=== PATIENT | male | born 1975 | race Caucasian/White ===

== ENCOUNTER 2020-01-29 14:53 | Emergency (ER) | payer OTHER, SELFPAY ==
[2020-01-29] VITALS (25 sets, daily range): BP systolic 117–185; BP diastolic 76–102; PULSE 65–85; RESP 14–30; O2SAT 95–100
--- NOTE | ~2020-01-29 | XR_ITS ---
EXAMINATION: XR chest 2V EXAM DATE: 01/29/2020 15:17 INDICATION: Chest pain, shortness of breath. There is respirator. Outside exposure. TECHNIQUE: Frontal and lateral projections of the chest obtained and reviewed. Comparison is made to prior examination from 03/21/2018. FINDINGS: The lungs are clear. There are no pleural effusions. The cardiomediastinal silhouette is within normal limits. There is no pneumothorax suspected. The bones and soft tissues are unremarkab le. There is no significant interval change. IMPRESSION: Unremarkable chest x-ray exam. Reviewed, dictated and finalized at location A.
--- NOTE | 2020-01-29 14:56 | ECG_ITS ---
Measurements Intervals [place] Rate: 73 P: 50 [place]: 166 QRS: 5 QRSD: 118 T: 24 QT: 378 QTc: 419 Interpretive Statements SINUS RHYTHM INCOMPLETE RIGHT BUNDLE BRANCH BLOCK BORDERLINE ECG Electronically Signed On 01-29-2020 15:34:56 CDT by Chase Hyman D.O.
--- NOTE | 2020-01-29 15:09 | ED.GENADULT ---
HPI - General Adult General Chief complaint: Chest Pain Stated complaint: CP, BAD INFECTION IN MY LUNGS. Time Seen by Provider: 01/29/20 14:56 Source: RN notes reviewed History of Present Illness HPI narrative: Patient presents emergency department from home for chest pain. Patient states chest pain is been present for the past 1 week. Pain is located across the bilateral anterior chest. Pain is worse with inspiration and resolves when he holds his breath. He denies any fevers or chills coughing shortness of breath abdominal pain nausea vomiting or any other symptoms Related Data Home Medications Medication Instructions Recorded Confirmed metoprolol succinate 50 mg 50 mg PO DAILY 10/18/19 tablet,extended release 24 hr Allergies Allergy/AdvReac Type Severity Reaction Status Date / Time No Known Allergies Allergy Mild Verified 01/29/20 15:24 Review of Systems Review of Systems: Narrative: Gen.: Denies fevers or chills ENT: Denies congestion Respiratory: Denies shortness of breath or cough CV: See HPI GI: Denies abdominal pain nausea, emesis or diarrhea Musculoskeletal: Denies back pain or muscle pain Neuro: Denies numbness, tingling, weakness or focal weakness Skin: Denies rash Except as documented, all other systems reviewed and negative [facility] Past Medical History Medical History (Updated 01/29/20 @ 18:47 by Dariusz Magana DO) HLD (hyperlipidemia) Hypertension Social History Social History (Updated 01/29/20 @ 18:45 by Dariusz Magana DO) Smoking status: Never smoker Exam Narrative: Exam Narrative: APPEARANCE: No acute distress, nontoxic, resting in bed EYES: EOMI HEENT: Normocephalic, atraumatic, OMM RESPIRATORY: No respiratory distress Clear to auscultation bilaterally with no rhonchi wheezing or rales. CARDIOVASCULAR: Regular rate and rhythm without murmurs rubs or gallops. ABDOMINAL: Soft, nontender, nondistended, no rebound or guarding MUSCULOSKELETAl: Moves all extremities. No clubbing, cyanosis or edema. NEURO: Awake and alert. Following commands, speech normal, no focal deficits SKIN:: Warm, dry. No rashes lesions or abrasions PSYCHIATRIC: Normal affect/mood, Course Course Emergency Course: Patient states chest pain has resolved following GI cocktail Discussed with patient results of workup and diagnosis. Discussed need for follow-up with primary care, proper use of medication, and reasons to return to the emergency department. Patient understands and agrees to current treatment plan Vital Signs Vital signs: Vital Signs Pulse Rate 75 01/29/20 15:19 Respiratory Rate 16 01/29/20 15:19 Blood Pressure 151/83 H 01/29/20 15:19 Pulse Oximetry 98 01/29/20 15:19 Pulse Rate 85 01/29/20 16:09 Respiratory Rate 16 01/29/20 16:09 Blood Pressure 117/88 01/29/20 16:09 Pulse Oximetry 98 01/29/20 15:19 Medical Decision Making MDM Narrative Medical decision making narrative: Patient's EKGs and labs are without significant high risk changes. Cardiac risk factors reviewed. Patient is felt likely low risk for ACS and reasonable for further risk stratification testing as an outpatient. Pain was not sudden or maximal in onset without tearing or ripping quality. No other signs of symptoms suggest aortic dissection. A low-risk Wells criteria is noted, PE is felt to be unlikely. No pneumonia seen on evaluation today. Patient is felt to be a reasonable candidate for continued evaluation as an outpatient. Pain is been present for the past 1 week Vital Signs Vital Signs: Vital Signs Pulse Rate 75 01/29/20 15:19 Respiratory Rate 16 01/29/20 15:19 Blood Pressure 151/83 H 01/29/20 15:19 Pulse Oximetry 98 01/29/20 15:19 Pulse Rate 85 01/29/20 16:09 Respiratory Rate 16 01/29/20 16:09 Blood Pressure 117/88 01/29/20 16:09 Pulse Oximetry 98 01/29/20 15:19 Lab Data Result diagrams: 01/29/20 15:23 01/29/20 15:23 Labs:
[2020-01-29 15:31] LABS: Basophils Absolute Auto 0.1 K/mm3 (0.0-0.1); Basophils Percent Auto 0.6 % (0.2-1.2); Eosinophils Absolute Auto 0.3 K/mm3 (0-0.3); Eosinophils Percent Auto 2.4 % (0-4.4); Hematocrit 43.3 % (42.0-52.0); Hemoglobin 14.5 g/dL (14.0-18.0); Immature Granulocyte Absolute 0.05 K/mm3 (0.00-0.031); Immature Granulocyte Percent A 0.4 % (0-0.5); Lymphocytes Absolute Auto 3.15 K/mm3 (0.9-3.2); Lymphocytes Percent Auto 27.5 % (18.3-44.2); Mean Corpuscular HGB Conc 33.5 g/dl (32-36); Mean Corpuscular Hemoglobin 29.8 pg (26-34); Mean Corpuscular Volume 89.1 fl (80-100); Mean Platelet Volume 10.4 fl (7.4-10.4); Monocytes Percent Auto 8.7 % (2.6-8.5); Neutrophils Absolute Auto 6.9 K/mm3 (1.3-6.7); Neutrophils Percent Auto 60.4 % (45.5-73.1); Platelet Count Result 234 k/mm3 (150-375); Red Blood Count 4.86 M/mm3 (4.6-6.20); Red Cell Distribution Width 13.8 % (11.5-14.5); White Blood Count 11.5 K/mm3 (4.5-10.0)
[2020-01-29 15:45] LABS: INR 0.9; Partial Thromboplastin Time 22.1 SECONDS (22.3-36.8); Prothrombin Time 11.6 Seconds (11.1-14.7)
[2020-01-29 15:46] LABS: Blood Urea Nitrogen 18 mg/dL (9-20); Carbon Dioxide 25 mmol/L (22-30); Chloride 103 mmol/L (98-107); Estimated CRCL calculation 158 ml/min; Estimated Glomerular Filt Rate > 60; Glucose 113 mg/dL (75-110); Potassium 3.9 mmol/L (3.4-5.0); Sodium 137 mmol/L (137-145)
[2020-01-29] MEDS: KETOROLAC 30 MG/ML VIAL (*BKC) IV PUSH (15:52)
[2020-01-29 15:54] LABS: D Dimer 0.27 ug/mL (<0.48)
[2020-01-29 15:56] LABS: Troponin I < 0.012 ng/mL (0.000-0.034)
[2020-01-29 16:46] LABS: Alanine Aminotransferase 35 U/L (4-50); Albumin Level 4.5 g/dL (3.5-5.1); Alkaline Phosphatase 69 U/L (38-126); Aspartate Amino Transferase 39 U/L (17-59); Bilirubin,Total 0.4 mg/dL (0.2-1.3); Lipase 82 U/L (23-300)
[2020-01-29 18:34] LABS: Troponin I < 0.012 ng/mL (0.000-0.034)
== END 2020-01-29 19:02 | disposition home or self-care (01) ==
PROVIDERS: Emergency Provider Emergency Medicine; PCP Emergency Medicine
DX: R07.89 Other chest pain (principal); E78.5 Hyperlipidemia, unspecified; I10 Essential (primary) hypertension; I45.10 Unspecified right bundle-branch block
CPT/HCPCS: 36415; 71046; 80048; 80076; 83690; 84484; 85025; 85380; 85610; 85730; 93005; 96374; 99284; A9270; J1885

== ENCOUNTER 2020-02-12 10:51 | Outpatient (CLI) | payer OTHER, SELFPAY ==
--- NOTE | ~2020-02-12 | US_ITS ---
EXAMINATION: US abdomen limited EXAM DATE: 02/12/2020 11:40 INDICATION: Gastroesophageal reflux. TECHNIQUE: Multiple grayscale and Doppler images of the abdomen right upper quadrant were obtained (b y a technologist who performed the scan) and subsequently reviewed. There is no prior study for honorio cohen. FINDINGS: The pancreatic head and body are normal in appearance. The pancreatic tail is not visualized. There is echogenic liver parenchyma, hepatic steatosis. There are no focal liver lesions identified. Th ere is no evidence of intrahepatic biliary duct dilation. Portal venous flow was seen in the hepatop edal, normal direction and has normal Doppler waveform. No right-sided hydronephrosis. Common bile duct measures 4 mm, which is normal. The gallbladder wall is normal in thickness, with ex pected amount of distention. No sonographic evidence of pericholecystic fluid. There is no cholelit hiases. Technologist performing exam reports patient did not demonstrate sonographic Molina's sign. Please note that this sign is less reliable in patients who have received pain medication. IMPRESSION: 1. Hepatic steatosis. Reviewed, dictated and finalized at location B. IMPRESSION: 1. Hepatic steatosis.
== END 2020-02-12 10:52 | disposition home or self-care (01) ==
PROVIDERS: PCP Emergency Medicine; Visit Provider Emergency Medicine
DX: K21.9 Gastro-esophageal reflux disease without esophagitis (principal); R10.9 Unspecified abdominal pain; K76.0 Fatty (change of) liver, not elsewhere classified
CPT/HCPCS: 76705

== ENCOUNTER 2021-04-13 08:43 | Emergency (ER) | payer OTHER, SELFPAY ==
--- NOTE | ~2021-04-13 | CT_ITS ---
EXAMINATION: CT brain wo con EXAM DATE: 04/13/2021 09:49 INDICATION: Left sided paresthesia. TECHNIQUE: Spiral CT of the head was performed without contrast. Axial, coronal and sagittal images were reviewed. The dose-length product (DLP) for this examination was 605.33 mGy-cm. The exposure w as tailored according to patient size, and iterative reconstruction (ASIR) was used as additional dos e reduction technique. There is no prior study for comparison. FINDINGS: There is no acute intraparenchymal hemorrhage. No evidence of intraparenchymal brain mass lesion. No evidence of acute infarction. There is no mass effect or midline shift. The ventricles are normal in size. There are no extra-axial collections. There are no acute calvarial fractures. T he orbits are unremarkable. Soft tissue is unremarkable. Moderate bilateral ethmoid opacity. IMPRESSION: 1. Unremarkable head CT examination. Reviewed, dictated and finalized at location A.
--- NOTE | 2021-04-13 08:45 | ECG_ITS ---
Measurements Intervals [place] Rate: 69 P: 20 MT: 174 QRS: 59 QRSD: 115 T: 50 QT: 399 QTc: 429 Interpretive Statements SINUS RHYTHM INCOMPLETE RIGHT BUNDLE BRANCH BLOCK BORDERLINE ECG Electronically Signed On 04-13-2021 8:55:59 CDT by Chase Hyman D.O.
[2021-04-13 08:46] VITALS: BP 168/81; PULSE 73; RESP 17; TEMP 36.8; O2SAT 100
--- NOTE | 2021-04-13 08:58 | ED.GENADULT ---
HPI - General Adult General Chief complaint: Dizziness Stated complaint: dizzy Time Seen by Provider: 04/13/21 08:57 Source: patient Mode of arrival: ambulatory Limitations: no limitations History of Present Illness HPI narrative: Patient is here for evaluation of symptoms that began on Tuesday and included some chest tightness, blurred vision, numbness to the left side of his face. He states that his vision has improved, he still has numbness to the left side of his face and mild chest tightness that does not radiate. He has a history of cardiac cath last year but no intervention. He took his blood pressure several times at home over the weekend stated that it was high, as much is 190/119. Did come to the ER at that time he was waiting to see his physician today. Onset (ago): day(s) Pain Consistency: constant Relieving factors: none Exacerbating factors: none Associated symptoms: denies other symptoms Treatments prior to arrival: none Related Data Allergies Allergy/AdvReac Type Severity Reaction Status Date / Time No Known Allergies Allergy Mild Verified 04/13/21 08:58 Review of Systems Review of Systems: All systems reviewed & are unremarkable except as noted in HPI and below [facility] Past Medical History Medical History (Updated 04/13/21 @ 11:58 by Dennise Fairchild PA-C) HLD (hyperlipidemia) Hypertension Social History Social History Smoking status: Never smoker Tobacco type: smokeless tobacco Smokeless tobacco user: chewing tobacco Alcohol intake: current Alcohol use details: daily 12 marta Substance use: never Occupation/Education: occupation Additional occupation/education comments: works outside Exam Const: General: no acute distress and alert Orientation/consciousness: patient oriented x3 HENMT: Head: normal to inspection Mouth: Yes Normal oral and palatal mucosa present, Yes tongue normal, Yes oropharynx normal and Yes moist mucous membranes Teeth and gingiva: caries (19 is decayed to gum level, no pain.) Eyes: Pupils: Equal, round and reactive pupils present Resp: Effort & Inspection: normal respiratory effort Auscultation: clear to auscultation bilaterally Cardio: Rate: regular rate Rhythm: regular rhythm Skin: General skin exam: normal color Neuro: General: patient oriented x3 and no focal motor deficits Sensory Exam: Sensory deficit (Neuro) (can feel all touch to face, but has feeling of numbness to left face and he) Other: neuro exam normal Course Course Emergency Course: Labs are normal, her EKG is unchanged from previous visit. Patient does still have numbness and tingling to the left side of his face, his CT is negative for stroke or other pathology. Discussed the possibility of this being a prodrome to shingles. Given the signs and symptoms and he is to call his physician if he develops any blisters or rash. He is to follow-up with his physician at the earliest available date. Vital Signs Vital signs: Vital Signs Temperature 36.8 C 04/13/21 08:46 Pulse Rate 73 04/13/21 08:46 Respiratory Rate 17 04/13/21 08:46 Blood Pressure 168/81 H 04/13/21 08:46 Pulse Oximetry 100 04/13/21 08:46 Temperature 36.8 C 04/13/21 08:46 Pulse Rate 92 04/13/21 10:58 Respiratory Rate 20 04/13/21 10:58 Blood Pressure 144/85 H 04/13/21 10:58 Pulse Oximetry 94 04/13/21 10:55 Medical Decision Making Vital Signs Vital Signs: Vital Signs Temperature 36.8 C 04/13/21 08:46 Pulse Rate 73 04/13/21 08:46 Respiratory Rate 17 04/13/21 08:46 Blood Pressure 168/81 H 04/13/21 08:46 Pulse Oximetry 100 04/13/21 08:46 Temperature 36.8 C 04/13/21 08:46 Pulse Rate 92 04/13/21 10:58 Respiratory Rate 20 04/13/21 10:58 Blood Pressure 144/85 H 04/13/21 10:58 Pulse Oximetry 94 04/13/21 10:55 Lab Data Result diagrams: 04/13/21 08:56 04/13/21 08:56
[2021-04-13 09:04] LABS: Basophils Absolute Auto 0.1 K/mm3 (0.0-0.1); Basophils Percent Auto 0.7 % (0.2-1.2); Eosinophils Absolute Auto 0.2 K/mm3 (0-0.3); Hemoglobin 14.4 g/dL (14.0-18.0); Immature Granulocyte Absolute 0.07 K/mm3 (0.00-0.031); Immature Granulocyte Percent A 0.7 % (0-0.5); Lymphocytes Absolute Auto 2.62 K/mm3 (0.9-3.2); Lymphocytes Percent Auto 27.9 % (18.3-44.2); Mean Corpuscular HGB Conc 33.5 g/dl (32-36); Mean Corpuscular Hemoglobin 29.4 pg (26-34); Mean Corpuscular Volume 87.9 fl (80-100); Mean Platelet Volume 9.9 fl (7.4-10.4); Monocytes Absolute Auto 0.7 K/mm3 (0.1-0.6); Monocytes Percent Auto 7.5 % (2.6-8.5); Neutrophils Absolute Auto 5.7 K/mm3 (1.3-6.7); Neutrophils Percent Auto 61.2 % (45.5-73.1); Platelet Count Result 235 k/mm3 (150-375); Red Blood Count 4.89 M/mm3 (4.6-6.20); Red Cell Distribution Width 13.6 % (11.5-14.5); White Blood Count 9.4 K/mm3 (4.5-10.0)
[2021-04-13 09:16] LABS: Anion Gap 12 mmol/L (8-16); Blood Urea Nitrogen 14 mg/dL (9-20); Calcium 9.7 mg/dL (8.4-10.2); Carbon Dioxide 24 mmol/L (22-30); Chloride 103 mmol/L (98-107); Estimated CRCL calculation 125 ml/min; Estimated Glomerular Filt Rate > 60; Glucose 115 mg/dL (65-110); Potassium 4.5 mmol/L (3.4-5.0); Sodium 139 mmol/L (137-145)
[2021-04-13] MEDS: SODIUM CHLORIDE 0.9% IV 1,000 ML 999 ML IV CONT (09:27)
[2021-04-13 09:39] LABS: Ethanol < 10 mg/dL (<10)
[2021-04-13 10:20] VITALS: PULSE 68; RESP 19
[2021-04-13] MEDS: ALBUTEROL SULFATE NEB 2.5 MG/3 ML INH INHALATION (10:20)
[2021-04-13 10:26] VITALS: PULSE 71; RESP 16
--- NOTE | 2021-04-13 10:52 | PC.NURSE ---
report to donna schofield
[2021-04-13 10:55] VITALS: BP 136/69; PULSE 71; RESP 18; O2SAT 94
[2021-04-13 10:58] VITALS: BP 144/85; PULSE 92; RESP 20
--- NOTE | 2021-04-13 11:40 | PC.NURSE ---
patient ambulate to bathroom without difficulty
[2021-04-13 11:53] LABS: Troponin I < 0.012 ng/mL (0.000-0.034)
== END 2021-04-13 12:10 | disposition home or self-care (01) ==
PROVIDERS: Physician Assistant; Emergency Provider Family Medicine; PCP Emergency Medicine
DX: R20.2 Paresthesia of skin (principal); E78.5 Hyperlipidemia, unspecified; I10 Essential (primary) hypertension; F17.220 Nicotine dependence, chewing tobacco, uncomplicated; I45.10 Unspecified right bundle-branch block
CPT/HCPCS: 36415; 70450; 80048; 80307; 84484; 85025; 93005; 94640; 96360; 99284; J7030

== ENCOUNTER 2024-12-14 22:51 | Emergency (ER) | payer OTHER, SELFPAY ==
--- NOTE | ~2024-12-14 | XR_ITS ---
XR chest 1V portable Ordering provider: Chip Anderson MD History: 49 years Male with . weakness . Comparison: January 29, 2020 FINDINGS: MEDIASTINUM: The cardiac silhouette is not enlarged. LUNGS: No infiltrates, effusions or pneumothorax. OTHER: No free air under the diaphragm. Degenerative changes of the spine. IMPRESSION: No acute cardiopulmonary pathology. Reviewed, dictated and finalized at location A.
--- NOTE | ~2024-12-14 | CT_ITS ---
EXAMINATION: CTA BRAIN/CAROTID DATE: 12/15/2024 00:07 INDICATION: Intermittent dizziness. TECHNIQUE: Computed tomographic angiography (CTA) of the head and neck was performed with 100 mL Omni paque-350 intravenous contrast. Multiplanar reconstructions and maximum intensity projection 3D-recon structions of the carotid arteries and of the intracranial arteries were created by the technologist on a separate workstation. Precontrast CT of the head was also obtained. Automated exposure control and iterative reconstruction technique were employed.The dose-length product was 1914.17 mGy-cm. COMPARISON: None. FINDINGS: Carotid arteries: Aortic arch and great vessels arising from the arch are normal in caliber with no hemodynamic signifi cant stenosis or dissection. There is 0% stenosis of the right and left carotid bulbs relative to nor mal distal artery lumen diameter (NASCET criteria). The visualized upper lungs are clear. Cervical so ft tissues and superior mediastinum are unremarkable. Severe cervical spondylosis. Head: Focal soft tissue swelling at the right occiput which could represent small scalp contusion. No fract ure. No acute intracranial hemorrhage, acute infarction or abnormal extra axial fluid collection. Tong tricles are normal and symmetric. No mass/mass effect. No abnormally enhancing brain lesions on the p ostcontrast imaging. Mild mucosal thickening the bilateral ethmoid sinuses. The orbits, paranasal sin uses and mastoid air cells are normal. Dental caries at the left second maxillary molar. Intracranial arteries Left vertebral artery is dominant. There is no hemodynamically significant stenosis in the vertebral, basilar and internal carotid arteries. There are no aneurysms identified. Both A1 and P1 segments ar e patent. There is a diminutive left posterior communicating artery. Cerebral arterial arborization a ppears symmetric. IMPRESSION: 1. 0% stenosis of the right and left carotid bulbs relative to normal distal artery lumen diameter (N ASCET criteria). 2. Unremarkable cerebral CT angiogram with no acute intracranial process. Reviewed, dictated and finalized at location A. IMPRESSION: 1. 0% stenosis of the right and left carotid bulbs relative to normal distal ar christy lumen diameter (NASCET criteria). 2. Unremarkable cerebral CT angiogram with no acute intracranial process.
--- NOTE | 2024-12-14 22:53 | ECG_ITS ---
Test Date: 2024-12-14 22:56:58 Measurements Intervals [place] Rate: 60 P: 19 ME: 181 QRS: 9 QRSD: 103 T: 2 QT: 395 QTc: 398 Interpretive Statements SINUS RHYTHM INCOMPLETE RIGHT BUNDLE BRANCH BLOCK BORDERLINE ECG No previous ECG available for comparison Electronically Signed On 12-15-2024 06:57:39 CDT by Chase Hyman D.O.
[2024-12-14 22:55] VITALS: BP 149/78; PULSE 60; RESP 18; TEMP 36.7; O2SAT 98
[2024-12-14 23:01] VITALS: PULSE 62
--- NOTE | 2024-12-14 23:10 | PC.NURSE ---
Report received from MIGUELINA Li. Assumed care of patient at this time.
[2024-12-14 23:11] LABS: Basophils Absolute Auto 0.1 K/mm3 (0.0-0.1); Basophils Percent Auto 0.9 % (0.2-1.2); Eosinophils Absolute Auto 0.2 K/mm3 (0-0.3); Eosinophils Percent Auto 2.7 % (0-4.4); Hemoglobin 12.7 g/dL (14.0-18.0); Immature Granulocyte Absolute 0.04 K/mm3 (0.00-0.031); Immature Granulocyte Percent A 0.5 % (0-0.5); Lymphocytes Absolute Auto 2.32 K/mm3 (0.9-3.2); Lymphocytes Percent Auto 28.6 % (18.3-44.2); Mean Corpuscular HGB Conc 31.8 g/dl (32-36); Mean Corpuscular Hemoglobin 27.2 pg (26-34); Mean Corpuscular Volume 85.7 fl (80-100); Mean Platelet Volume 10.9 fl (7.4-10.4); Monocytes Absolute Auto 0.7 K/mm3 (0.1-0.6); Monocytes Percent Auto 8.5 % (2.6-8.5); Neutrophils Absolute Auto 4.8 K/mm3 (1.3-6.7); Neutrophils Percent Auto 58.8 % (45.5-73.1); Platelet Count Result 232 k/mm3 (150-375); Red Blood Count 4.67 M/mm3 (4.6-6.20); Red Cell Distribution Width 14.1 % (11.5-14.5); White Blood Count 8.1 K/mm3 (4.5-10.0)
--- OUTSIDE RECORDS SUMMARY | 2024-12-14 23:19 | XMS_ITS | Referral Summary ---
Author Organization [facility] [place] [address] Address [address] [place] [address] Care Team Providers Care Log Buncher Name Role Phone Wilfred Trammell MD Primary Care Prov ider Allergies No known active allergies Medications diclofenac DR (VOLTAREN) 75 mg EC tablet Take 75 mg by mouth 2 (two) times a day. Active metoprolol XL (TOPROL-XL) 50 mg 24 hr tablet Take 50 mg by mouth daily. Active lidocaine (ASPERCREME) 4 % adhesive patch,medicated Place 1 patch on the skin 2 (two) times a day 15 patch 09/21/2021 Active Active Problems Problem Noted Date Diagnosed Date Chest pain 04/26/2017 Abnormal stress test 04/26/2017 Social History Tobacco Use Types Packs/Day Years Used Date Smoking Tobacco: Former Cigarettes Q uit: 04/26/2002 Smokeless Tobacco: Current Alcohol Use Standard Drinks/Week Comments Yes 48 (1 standard drink = 0.6 oz pu re alcohol) Personal Safety Answer Date Recorded Getting School Help Needed Not on file 11/04 Sex and Gender Information Value Date Recorded Sex Assigned at Not on file Legal Sex Male 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 Gender Identity Not on file Sexual Orientation Not on file Last Filed Vital Signs Vital Sign Reading Time Taken Comments Blood Pressure 152/91 09/21/2021 4:30 PM BUSINESS ADMINISTRATION INSTRUCTOR Pulse 77 09/21/2021 4:30 PM BUSINESS ADMINISTRATION INSTRUCTOR Temperature 36.8 C (98.2 F) 09/21/2021 2:19 PM BUSINESS ADMINISTRATION INSTRUCTOR Respiratory Rate 18 09/21/2021 2:19 PM BUSINESS ADMINISTRATION INSTRUCTOR Oxygen Saturation 96% 09/21/2021 4:30 PM BUSINESS ADMINISTRATION INSTRUCTOR Inhaled Oxygen Concentration - - Weight 141.5 kg (311 lb 15.2 oz) 09/21/2021 2:19 PM BUSINESS ADMINISTRATION INSTRUCTOR Height 175.3 cm (5' 9 ) 04/26/2017 11:1 1 AM CDT Body Mass Index 46.07 04/26/2017 11:11 AM CDT Plan of Treatment Not on file Insurance Care Teams Log Buncher Relationship Specialty Start Date End Date Wilfred Trammell MD [address] [place] [address] PCP - General Family Medicine 03/31/17
--- OUTSIDE RECORDS SUMMARY | 2024-12-14 23:19 | XMS_ITS | Continuity of Care Document ---
Author Organization [facility] Address [address] [place] [address] Phone Care Team Providers Care Paint Mixer Machine Name Role Phone [facility] Unavailable Unavail able Sickbishop, Obdulia Unavailable Unavailable Procedures Procedure Date Vision Svcs Frames Purchases SV Hi Index Sph [place] To +/- 4 07 Tax - Medical Eye Exam & Treatment Advance Directives Directive Yes / No Effective Date File Name No Information Encounters Encounter Description Practice Location Reason(s) For Visit Diagnoses Date Provider Providers Copied on Encounter [facility], [id number] [place] [address] [address], [place], [place], [id number], [place] tel:[phone] [facility] No Information 6200 7 [facility] . [address] [facility], [address], [id number], [place]. tel:[phone] Referring Provider: Pérez Arzate OD A, [address] [place], [place] [address], [place], [address]. tel:[phone] sulting Provider: Obdulia Patino, [address] [place], [address]. tel:[phone] [facility], [address] [place] [address] [address], [place], [place], [id number], [place] tel:[phone] [facility] No Information Oct- 5-200 7 Arzate OD Pérez. [address], [place], [address], [place]. tel:[phone] Family History Family Member Type Diagnosis Age At Onset No Information Payers Payer name Insurance type Covered constitution party ID Authoriza tion(s) No Information Social [...]
--- OUTSIDE RECORDS SUMMARY | 2024-12-14 23:19 | XMS_ITS | Clinical Summary ---
Author Organization [facility] Address [facility] [place] [address] Care Team Providers Care Mechanical Product Design Engineer Name Role Phone Unavailable Primary Care Provider Unavailabl e Social History Tobacco Use Types Packs/Day Years Used Date Smoking Tobacco: Never Assessed Sex and Gender Information Value Date Recorded Sex Assigned at Not on file Legal Sex Male 7:19 PM CDT Gender Identity Not on file Sexual Orientation Not on file Plan of Treatment Health Maintenance Due Date Last Done Comments Colorectal Cancer Screening Colonoscopy (10 Years) 1975 Annual Physical 1978 Hepatitis C 1993 DTaP, Tdap and Td Vaccines ( 1 - Tdap) 1994 Hepatitis B Vaccines (1 of 3 - 19+ 3-dose series) 1994 COVID-19 Vaccine ( - 2023-2 5 season) 2024 Meningococcal B Vaccine Aged Out No l onger eligible based on patient's age to complete this topic Meningococcal Vaccine Aged Out No magda maggie eligible based on patient's age to complete this topic Pneumococcal Vaccine: Pediat rics (0 to 5 Years) and At-Risk Patients (6 to 49 Years) Aged Out No longer eligible b ased on patient's age to complete this topic RSV Immunizations Under 20 Months Aged Out No longer eligible based on patient's age to complete this topic Additional Health Concerns Infection Onset Date Last Indicated 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
--- OUTSIDE RECORDS SUMMARY | 2024-12-14 23:19 | XMS_ITS | Clinical Summary ---
Author Organization [facility] [place] [address] Address [address] [place] [address] Care Team Providers Care Teen Counselor Name Role Phone Wilfred Trammell MD Primary [...] Chest pain 04/26/2017 Abnormal stress test 04/26/2017 Surgical History Surgery Date Site/Laterality Comments CYST REMOVAL Medical History Medical History Date Comments Hypertension Arthritis Family History Medical History Relation Name Comments Heart disease Father Hyperlipidemia Mother Thyroid cancer Sister Relation Name Status Comments Father Alive Mother Alive Sister Alive Social History Tobacco Use Types Packs/Day Years [...] on file Legal Sex Male 8:26 AM EQUITIES ANALYST Gender Identity Not on file Sexual Orientation Not on file Obstetrics History Last Filed Vital Signs Vital Sign Reading Time Taken Comments Blood Pressure 152/91 09/21/2021 4:30 PM EQUITIES ANALYST Pulse 77 09/21/2021 4:30 PM EQUITIES ANALYST Temperature 36.8 C (98.2 F) 09/21/2021 2:19 PM EQUITIES ANALYST Respiratory Rate 18 09/21/2021 2:19 PM EQUITIES ANALYST Oxygen Saturation 96% 09/21/2021 4:30 PM EQUITIES ANALYST Inhaled Oxygen Concentration - - Weight 141.5 kg (311 lb 15.2 oz) 09/21/2021 2:19 PM EQUITIES ANALYST Height 175.3 cm (5' 9 ) 04/26/2017 11:1 1 AM CDT Body Mass Index 46.07 04/26/2017 11:11 AM CDT Plan of Treatment Not on file Insurance [id number] CHOICE PLUS [facility] CHOICE PLUS Care Teams Teen Counselor Relationship Specialty Start Date End Date Wilfred Trammell MD [address] [place] [address] PCP - General Family Medicine 03/31/17
--- NOTE | 2024-12-14 23:23 | ED.DIZZY ---
HPI - Dizziness General Chief Complaint: Dizziness Stated Complaint: DIZZINESS Time Seen by Provider: 12/14/24 23:00 Source: patient Mode of arrival: ambulatory Limitations: no limitations History of Present Illness HPI Narrative: This is a 49-year-old male with PMH of HTN who presents to the ED via EMS for chief complaint of dizziness onset 2-3 hours ago. Patient states the Related Data Allergies Allergy/AdvReac Type Severity Reaction Status Date / Time No Known Allergies Allergy Mild Verified 04/27/24 11:23 Review of Systems Review of Systems: All systems as dictated in HPI [facility] Past Medical History Medical History (Updated 12/15/24 @ 02:27 by uLis E Olson PA-C) Hypertension HLD (hyperlipidemia) Social History Social History Smoking status: Former smoker Tobacco type: smokeless tobacco Smokeless tobacco user: chewing tobacco Alcohol intake: current Alcohol use details: daily 12 marta Substance use: never Do You Feel Safe in your Home?: Yes Lack of Transportation: No Lack of Food: Never True Current Housing: I Have Housing Concerned About Future Housing: No Difficulty Paying Gas/Electric Bills: YES Difficulty Paying for Meds: YES Currently Unemployed: No Education: High School Diploma/GED Difficulty w/ Childcare or Family Care: No Living arrangements: with family Occupation/Education: occupation Additional occupation/education comments: works outside Exam Narrative: GENERAL: Well-appearing, well-nourished, and in no acute distress. HEAD: Normocephalic, atraumatic. EYES: PERRLA and EOMI. ENT: Nares clear, no rhinorrhea or epistaxis. Mucous membranes moist. Oropharynx without tonsillar hypertrophy exudate or other lesions. NECK: Supple. No adenopathy or masses. CHEST: No respiratory distress. Clear to auscultation. No wheezes rales or rhonchi HEART: Regular rate and rhythm. No murmur heard. Normal peripheral pulses. ABDOMEN: Soft, nontender, nondistended, normal active bowel sounds. MSK: Normal range of motion. No edema. SKIN: Warm, dry, no rash. NEURO: Alert and oriented x4. No focal deficits. PSYCH: Normal mood and affect. Course Vital Signs Vital signs: Vital Signs Temperature 98.0 F 12/14/24 22:55 Pulse Rate 60 12/14/24 22:55 Respiratory Rate 18 12/14/24 22:55 Blood Pressure 149/78 H 12/14/24 22:55 Pulse Oximetry 98 12/14/24 22:55 Temperature 98.0 F 12/14/24 22:55 Pulse Rate 62 12/14/24 23:01 Respiratory Rate 18 12/14/24 22:55 Blood Pressure 149/78 H 12/14/24 22:55 Pulse Oximetry 98 12/14/24 22:55 MDM - Dizziness MDM Narrative Medical decision making narrative: This is a 49-year-old male who presents to the ED for chief complaint of dizziness, room spinning intermittent since this morning. Vitals are normal. Exam remarkable for the above. No focal neurologic deficit. He is not ataxic. Lab work unremarkable overall including negative troponin. EKG shows sinus rhythm with no acute ischemic findings. CTA brain and carotid: Stat rad read: No evidence of acute intracranial pathology. No comparison. Negative CT angiogram of the head. the dural venous sinuses are patent. No comparisons. Negative CT angiogram of the neck. No comparison. On re-evaluation patient is feeling much improved after Benadryl, fluids, scopolamine patch. He feels ready to go home. Presentation consistent with benign paroxysmal positional vertigo. Meclizine Rx given. Patient will be discharged in stable condition. Supportive measures discussed and return precautions given. Patient is understanding and agreeable with plan for discharge with PCP follow-up. Lab Data 12/14/24 23:05 12/14/24 23:05 Labs: Lab Results 12/14/24 12/14/24 Range/Units 23:05 23:45 WBC 8.1 (4.5-10.0) K/mm3 RBC 4.67 (4.6-6.20) M/mm3 Hgb 12.7 L (14.0-18.0) g/dL Hct 40.0 L (42.0-52.0) % MCV 85.7 (80-100) fl MCH 27.2 (26-34) pg MCHC 31.8 L (32-36) g/dl RDW 14.1 (11.5-14.5) % Plt Count 232 (150-375) k/mm3 MPV 10.9 H (7.4-10.4) fl Immature Gran % (Auto) 0.5 (0-0.5) % Neut % (Auto) 58.8 (45.5-73.1) % Lymph % (Auto) 28.6 (18.3-44.2) % [place] % (Auto) 8.5 (2.6-8.5) % Eos % (Auto) 2.7 (0-4.4) % Baso % (Auto) 0.9 (0.2-1.2) % Lymph # (Auto) 2.32 (0.9-3.2) K/mm3 [place] # (Auto) 0.7 H (0.1-0.6) K/mm3 Eos # (Auto) 0.2 (0-0.3) K/mm3 Baso # (Auto) 0.1 (0.0-0.1) K/mm3 Abs Immat Gran (auto) 0.04 H (0.00-0.031) K/mm3 Absolute Neuts (auto) 4.8 (1.3-6.7) K/mm3 Absolute Nucleated RBC 0.000 (0.0-0.012) K/mm3 Nucleated RBC % 0.0 (0.0-0.2) % Sodium 138 (137-145) mmol/L Potassium 4.1 (3.4-5.0) mmol/L Chloride 103 (98-107) mmol/L Carbon Dioxide 25 (22-30) mmol/L Anion Gap 10 (4-12) mmol/L BUN 18 (9-20) mg/dL Creatinine 0.79 (0.7-1.3) mg/dL Estim Creat Clear Calc 134 ml/min Estimated GFR > 60 (59 - ) Glucose 126 H (65-110) mg/dL Calcium 9.2 (8.4-10.2) mg/dL Total Bilirubin 0.5 (0.2-1.3) mg/dL AST 22 (17-59) U/L ALT 22 (6-50) U/L Alkaline Phosphatase 60 (38-126) U/L Troponin I < 0.012 (0.000-0.034) ng/mL Total Protein 7.0 (6.3-8.2) g/dL Albumin 4.4 (3.5-5.1) g/dL Urine Color Yellow (Yellow) Urine Appearance Clear (Clear) Urine pH 6.0 (5.0-9.0) Ur Specific [place] 1.007 (1.001-1.035) Urine Protein Negative (Negative) mg/dL Urine Glucose (UA) Negative (Negative) mg/dL Urine Ketones Negative (Negative) mg/dL Ur Blood (Man) Negative (Negative) Urine Nitrate Negative (Negative) Urine Bilirubin Negative (Negative) Urine Urobilinogen 0.2 (<2.0) mg/dL Leukocyte Esterase Rfl Negative (Negative) YOEL/UL Discharge Plan Discharge Clinical Impression: Benign paroxysmal positional vertigo Patient Disposition: Home Condition: Stable Instructions: Antibiotic Form, Benign Paroxysmal Positional Vertigo (ED) Additional Instructions: Exam and imaging today are reassuring. Please take meclizine as needed for dizziness symptoms. Follow-up closely with your PCP on this issue. Your CT scan today did show incidental findings of lymph nodes in the hilum as well as spinal canal stenosis in the cervical spine. Follow-up with your doctor about these issues as well. If you have any new or worsening symptoms please return to the ER for further evaluation. Patient Language: Somali Prescriptions: New meclizine 25 mg tablet 25 mg PO BID PRN (Reason: dizziness) Qty: 30 0RF No Action metoprolol succinate 100 mg tablet extended release 24 hr See Rx Instructions .ROUTE .COMPLEX Qty: 90 2RF Dose Instruction: Take 1 tablet by mouth once daily Rx Instructions: Take 1 tablet by mouth once daily pantoprazole 40 mg tablet,delayed release (DR/EC) See Rx Instructions .ROUTE .COMPLEX Qty: 90 2RF Dose Instruction: TAKE 1 TABLET BY MOUTH AT BEDTIME Rx Instructions: TAKE 1 TABLET BY MOUTH AT BEDTIME metformin 500 mg tablet extended release 24 hr 500 mg PO BID Qty: 180 2RF Follow-up/Referrals: Edil Doherty MD [Primary Care Provider] - Time of Disposition: 02:27
[2024-12-14 23:24] LABS: Alanine Aminotransferase 22 U/L (6-50); Albumin Level 4.4 g/dL (3.5-5.1); Alkaline Phosphatase 60 U/L (38-126); Anion Gap 10 mmol/L (4-12); Aspartate Amino Transferase 22 U/L (17-59); Bilirubin,Total 0.5 mg/dL (0.2-1.3); Blood Urea Nitrogen 18 mg/dL (9-20); Calcium 9.2 mg/dL (8.4-10.2); Carbon Dioxide 25 mmol/L (22-30); Chloride 103 mmol/L (98-107); Estimated CRCL calculation 134 ml/min; Estimated Glomerular Filt Rate > 60; Glucose 126 mg/dL (65-110); Potassium 4.1 mmol/L (3.4-5.0); Sodium 138 mmol/L (137-145)
[2024-12-14] MEDS: SODIUM CHLORIDE 0.9% IV 1,000 ML 999 ML IV CONT (23:42)
[2024-12-14] MEDS: SCOPOLAMINE 1 MG PATCH 1 PATCH TRANSDERM (23:42)
[2024-12-14] MEDS: diphenhydrAMINE HCl INJ 50 MG/ML VIAL 25 MG IV PUSH (23:42)
[2024-12-14 23:53] LABS: Add Urine Microscopic? NO; Appearance Urine Clear (Clear); Bilirubin Urine Negative (Negative); Blood Urine Negative (Negative); Color Urine Yellow (Yellow); Glucose Urine UA Negative (Negative); Ketones Urine Negative (Negative); Leukocyte Esterase Ur Negative LEU/UL (Negative); Nitrate Urine Negative (Negative); Protein Urine Negative (Negative); Specific Grav Ur 1.007 (1.001-1.035); Urobilinogen Urine 0.2 mg/dL (<2.0)
[2024-12-15 00:09] LABS: Troponin I < 0.012 ng/mL (0.000-0.034)
[2024-12-15 02:35] VITALS: BP 137/77; PULSE 57; RESP 20; O2SAT 99
== END 2024-12-15 02:35 | disposition home or self-care (01) ==
PROVIDERS: Emergency Medicine; Emergency Provider Physician Assistant; PCP Emergency Medicine
DX: H81.10 Benign paroxysmal vertigo, unspecified ear (principal); I10 Essential (primary) hypertension; E78.5 Hyperlipidemia, unspecified
CPT/HCPCS: 36415; 70496; 70498; 71045; 80053; 81003; 84484; 85025; 93005; 96361; 96374; 99284; A9270; J1200; J7030; Q9967

== ENCOUNTER 2024-12-28 13:18 | Outpatient (CLI) | payer OTHER, SELFPAY ==
--- NOTE | ~2024-12-28 | CT_ITS ---
CT Scan of the Chest without Contrast: Clinical Indication: Lymphadenopathy Technique: Contiguous sections were acquired throughout the chest without intravenous contrast. Dose reduction technique was used on this scan by utilizing automated exposure control and iterative recon struction technique. The dose-length product (DLP) was 863.53 mGy-cm. Findings: There is no evidence of any significant mediastinal, hilar or axillary lymphadenopathy. Coronary mana ry calcifications are present. There is no evidence of pleural or pericardial effusion. The lungs are clear. No pulmonary nodules or infiltrates are noted. Images through the upper abdomen reveal no abnormalities. Impression: No significant abnormalities seen. Reviewed, dictated and finalized at location . Impression: No significant abnormalities seen.
--- OUTSIDE RECORDS SUMMARY | 2024-12-28 13:28 | XMS_ITS | Clinical Summary ---
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 Gender Identity Not on file Sexual Orientation Not on file Obstetrics History Last Filed Vital Signs Vital Sign Reading Time Taken Comments Blood Pressure 152/91 09/21/2021 4:30 PM DUST COLLECTOR TREATER Pulse 77 09/21/2021 4:30 PM DUST COLLECTOR TREATER Temperature 36.8 C (98.2 F) 09/21/2021 2:19 PM DUST COLLECTOR TREATER Respiratory Rate 18 09/21/2021 2:19 PM DUST COLLECTOR TREATER Oxygen Saturation 96% 09/21/2021 4:30 PM DUST COLLECTOR TREATER Inhaled Oxygen Concentration - - Weight 141.5 kg (311 lb 15.2 oz) 09/21/2021 2:19 PM DUST COLLECTOR TREATER Height 175.3 cm (5' 9 ) 04/26/2017 11:1 1 AM CDT Body Mass Index 46.07 04/26/2017 11:11 AM CDT Plan of Treatment Not on file Insurance [id number]NY [address] CHOICE PLUS [facility] HMO/PPO Address: [place] [address] [facility] CHOICE PLUS [facility] HMO/PPO Address: [address] [address] [place] [address] Care Teams Agency Recruiter Relationship Specialty Start Date End Date Wilfred Trammell MD [address] [place] [address] PCP - General Family Medicine 03/31/17
--- OUTSIDE RECORDS SUMMARY | 2024-12-28 13:28 | XMS_ITS | Referral Summary ---
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 Gender Identity Not on file Sexual Orientation Not on file Last Filed Vital Signs Vital Sign Reading Time Taken Comments Blood Pressure 152/91 09/21/2021 4:30 PM EVENT PLANNING MANAGER Pulse 77 09/21/2021 4:30 PM EVENT PLANNING MANAGER Temperature 36.8 C (98.2 F) 09/21/2021 2:19 PM EVENT PLANNING MANAGER Respiratory Rate 18 09/21/2021 2:19 PM EVENT PLANNING MANAGER Oxygen Saturation 96% 09/21/2021 4:30 PM EVENT PLANNING MANAGER Inhaled Oxygen Concentration - - Weight 141.5 kg (311 lb 15.2 oz) 09/21/2021 2:19 PM EVENT PLANNING MANAGER Height 175.3 cm (5' 9 ) 04/26/2017 11:1 1 AM CDT Body Mass Index 46.07 04/26/2017 11:11 AM CDT Plan of Treatment Not on file Insurance [facility] Address: [address] [place] [address] [facility] Address: [address] [place] [address] Care Teams Talent Consultant Relationship Specialty Start Date End Date Wilfred Trammell MD [address] [place] [address] PCP - General Family Medicine 03/31/17
--- OUTSIDE RECORDS SUMMARY | 2024-12-28 13:28 | XMS_ITS | Continuity of Care Document ---
Author Organization [facility] Address [address] [place] [address] Phone Care Team Providers Care Supervisor Porcelain Department Name Role Phone [facility] Unavailable Unavail able Sickbishop, Obdulia Unavailable Unavailable Procedures Procedure Date Vision Svcs Frames Purchases SV Hi Index Sph [place] To +/- 4 07 Tax - Medical Eye Exam & Treatment Advance Directives Directive Yes / No Effective Date File Name No Information Encounters Encounter Description Practice Location Reason(s) For Visit Diagnoses Date Provider Providers Copied on Encounter [facility], [id number] [place] [address] [address], [place], [place], [id number], [place] tel:[phone] [facility] No Information 6200 7 [facility] . [address] [facility], [address], [id number], [place]. tel:[phone] Referring Provider: Pérez Arzate OD A, [address] [place], [place] [address], [place], [address]. tel:[phone] sulting Provider: Obdulia Patino, [address] [place], [address]. tel:[phone] [facility], [address] [place] [address] [address], [place], [place], [id number], [place] tel:[phone] [facility] No Information Oct- 5-200 7 Arzate OD Pérez. [address] , [address], [place], [address], [place]. tel:[phone] Family History Family Member Type Diagnosis Age At Onset No Information Payers Payer name Insurance type Covered republican ID Authoriza tion(s) No Information Social History [...]
--- OUTSIDE RECORDS SUMMARY | 2024-12-28 13:28 | XMS_ITS | Clinical Summary ---
Author Organization [facility] Address [facility] [place] [address] Care Team Providers Care Chip Tester Name Role Phone Unavailable Primary Care Provider [...]
== END 2024-12-28 13:19 | disposition home or self-care (01) ==
PROVIDERS: PCP Emergency Medicine; Visit Provider Emergency Medicine
DX: R59.0 Localized enlarged lymph nodes (principal)
CPT/HCPCS: 71250

== ENCOUNTER 2025-01-10 15:01 | Outpatient (CLI) | payer OTHER, SELFPAY ==
--- NOTE | ~2025-01-10 | MR_ITS ---
MRI of the cervical spine Clinical History: Disease of spinal cord Technique: Axial T2-weighted and gradient images, and sagittal T1-weighted, T2-weighted, and STIR reese ges were acquired. Findings: No fracture or subluxation seen. Vertebral bodies maintain normal height and alignment. No bone marrow signal reality seen. At C2-C3, there is no disc bulge or herniation. No spinal canal stenosis, cord compression, or neural foraminal narrowing. At C3-C4, there is no disc bulge or herniation. No spinal canal stenosis, cord compression, or neural foraminal narrowing. At C4-C5, there is minimal disc osteophyte complex. There is probable mild bilateral neural foraminal narrowing, right worse than left. No canal stenosis or cord compression. At C5-C6, there is disc osteophyte complex with mild to moderate canal stenosis with minimal cord com pression. There is bilateral neural foraminal narrowing. At C6-C7, there is advanced degenerative disc narrowing. There is disc osteophyte complex, especially the right paracentral to right foraminal region. There is severe right neural foraminal narrowing an d probable mild left neural foraminal narrowing. There is mild canal stenosis and possible minimal fl attening the ventral cord. No abnormal signal evident in the spinal cord. Paravertebral soft tissues are unremarkable. Impression: Advanced degenerative spondylitic changes at C5-C6 and C6-C7, as detailed above. Mild degenerative change at C4-C5. Reviewed, dictated and finalized at [facility]. Impression: Advanced degenerative spondylitic changes at C5-C6 and C6-C7, as detailed above . Mild degenerative change at C4-C5.
--- OUTSIDE RECORDS SUMMARY | 2025-01-10 15:09 | XMS_ITS | Continuity of Care Document ---
Author Organization [facility] Address [address] [place] [address] Phone Care Team Providers Care Farm Instructor Name Role Phone [facility] Unavailable Unavail able Sickbishop, Obdulia Unavailable Unavailable Procedures Procedure Date Vision Svcs Frames Purchases SV Hi Index Sph [place] To +/- 4 07 Tax - Medical Eye Exam & Treatment Advance Directives Directive Yes / No Effective Date File Name No Information Encounters Encounter Description Practice Location Reason(s) For Visit Diagnoses Date Provider Providers Copied on Encounter [facility], [id number] [place] [address] [address], [place], [place], [id number], [place] tel:[phone] [facility] No Information 6200 7 [facility] . [address] [facility], [address], [id number], [place]. tel:[phone] Referring Provider: Pérez Arzate OD A, [address] [place], [place] [address], [place], [address]. tel:[phone] sulting Provider: Obdulia Patino, [address] [place], [address]. tel:[phone] [facility], [address] [place] [address] [address], [place], [place], [id number], [place] tel:[phone] [facility] No Information Oct- 5-200 7 Arzate OD Pérez. [address] , [address], [place], [address], [place]. tel:[phone] Family History Family Member Type Diagnosis Age [...]
--- OUTSIDE RECORDS SUMMARY | 2025-01-10 15:09 | XMS_ITS | Referral Summary ---
Author Organization [facility] [address] Address [address] [place] [address] Care Team Providers Care Statistical Engineer Name Role Phone Wilfred Trammell MD Primary [...] on file Legal Sex Male 8:26 AM GROUP CONTROLLER Gender Identity Not on file Sexual Orientation Not on file Last Filed Vital Signs Vital Sign Reading Time Taken Comments Blood Pressure 152/91 09/21/2021 4:30 PM GROUP CONTROLLER Pulse 77 09/21/2021 4:30 PM GROUP CONTROLLER Temperature 36.8 C (98.2 F) 09/21/2021 2:19 PM GROUP CONTROLLER Respiratory Rate 18 09/21/2021 2:19 PM GROUP CONTROLLER Oxygen Saturation 96% 09/21/2021 4:30 PM GROUP CONTROLLER Inhaled Oxygen Concentration - - Weight 141.5 kg (311 lb 15.2 oz) 09/21/2021 2:19 PM GROUP CONTROLLER Height 175.3 cm (5' 9 ) 04/26/2017 11:1 1 AM CDT Body Mass Index 46.07 04/26/2017 11:11 AM CDT Plan of Treatment Not on file Insurance Care Teams Statistical Engineer Relationship Specialty Start Date End Date Wilfred Trammell MD [address] [place] [address] PCP - General Family Medicine 03/31/17
--- OUTSIDE RECORDS SUMMARY | 2025-01-10 15:09 | XMS_ITS | Clinical Summary ---
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 Gender Identity Not on file Sexual Orientation Not on file Obstetrics History Last Filed Vital Signs Vital Sign Reading Time Taken Comments Blood Pressure 152/91 09/21/2021 4:30 PM WELL LOGGING OPERATOR MUD ANALYSIS Pulse 77 09/21/2021 4:30 PM WELL LOGGING OPERATOR MUD ANALYSIS Temperature 36.8 C (98.2 F) 09/21/2021 2:19 PM WELL LOGGING OPERATOR MUD ANALYSIS Respiratory Rate 18 09/21/2021 2:19 PM WELL LOGGING OPERATOR MUD ANALYSIS Oxygen Saturation 96% 09/21/2021 4:30 PM WELL LOGGING OPERATOR MUD ANALYSIS Inhaled Oxygen Concentration - - Weight 141.5 kg (311 lb 15.2 oz) 09/21/2021 2:19 PM WELL LOGGING OPERATOR MUD ANALYSIS Height 175.3 cm (5' 9 ) 04/26/2017 11:1 1 AM CDT Body Mass Index 46.07 04/26/2017 11:11 AM CDT Plan of Treatment Not on file Insurance [id number] [address]NY [address] CHOICE PLUS [facility] HMO/PPO Address: [place] [address] [facility] CHOICE PLUS [facility] HMO/PPO Address: [address] [address] [place] [address] Care Teams Research Scholar Relationship Specialty Start Date End Date Wilfred Trammell MD [address] [place] [address] PCP - General Family Medicine 03/31/17
== END 2025-01-10 15:02 | disposition home or self-care (01) ==
PROVIDERS: PCP Emergency Medicine; Visit Provider Emergency Medicine
DX: M50.321 Other cervical disc degeneration at C4-C5 level (principal); M47.892 Other spondylosis, cervical region
CPT/HCPCS: 72141

== ENCOUNTER 2025-04-18 14:23 | Outpatient (CLI) | payer OTHER, SELFPAY ==
--- OUTSIDE RECORDS SUMMARY | 2006-11-04 04:10 | XMS_ITS | Continuity of Care Document ---
Author Organization [facility] [place] [address] [place] [address] Phone Care Team Providers Care Purchasing Engineer Name Role Phone [facility] Unavailable Unavail able Sickbishop, Obdulia Unavailable Unavailable Procedures Procedure Date Vision Svcs Frames Purchases SV Hi Index Sph [place] To +/- 4 07 Tax - Medical Eye Exam & Treatment Advance Directives Directive Yes / No Effective Date File Name No Information Encounters Encounter Description Practice Location Reason(s) For Visit Diagnoses Date Provider Providers Copied on Encounter [facility], [id number] [place] [address] [address], [place], [place], [id number], [place] tel:[phone] [facility] No Information 6200 7 [facility] . [address] [facility], [address], [id number], [place]. tel:[phone] Referring Provider: Pérez Arzate OD A, [address] [place], [place] [address], [place], [address]. tel:[phone] sulting Provider: Obdulia Patino, [address] [place], [address]. tel:[phone] [facility], [address] [place] [address] [address], [place], [place], [id number], [place] tel:[phone] [facility] No Information Oct- 5-200 7 Arzate OD Pérez. [address] , [address], [place], [address], [place]. tel:[phone] Family History Family Member Type Diagnosis Age At Onset No Information Payers Payer name Insurance type Covered green party ID Authoriza tion(s) No Information Social History Type Description Quantity Date Captured Comments Sex Male Smoking Status No Information Chief Complaint And Reason For Visit No Information Reason For Referral Reason For Referral No Information History Of Present Illness Encounter Date Complaint History Of Prese nt Illness No Information Functional Status Date Functional Assessmen t No Information Instructions Date Instruction Additional Infor mation No Information Assessments Type Assessment Date No Information Patient Care Teams Name Effective Dates (start - stop) Status Members No Information
--- NOTE | ~2025-04-18 | XR_ITS ---
XR soft tissue neck 04/18/2025 14:41 Indication: Cervicalgia Procedure: 2 views cervical spine Comparison: No prior studies for comparison. Findings: Normal cervical alignment. There is disc narrowing and endplate hypertrophy at C5-6 and C6-7. No prevertebral soft tissue swelling. There is multilevel uncinate and facet hypertrophy. Lung apices are normal. Impression: 1: Moderate cervical spondylosis. Reviewed, dictated and finalized at location O. Impression: 1: Moderate cervical spondylosis.
--- OUTSIDE RECORDS SUMMARY | 2025-04-18 14:29 | XMS_ITS | Clinical Summary ---
Author Organization [facility] Address [facility] [place] [address] Care Team Providers Care Underwriting Specialist Name Role Phone Unavailable Primary Care Provider [...]
--- OUTSIDE RECORDS SUMMARY | 2025-04-18 14:29 | XMS_ITS | Clinical Summary ---
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 Gender Identity Not on file Sexual Orientation Not on file Obstetrics History Last Filed Vital Signs Vital Sign Reading Time Taken Comments Blood Pressure 152/91 09/21/2021 4:30 PM PEOPLESOFT FINANCIAL DEVELOPER Pulse 77 09/21/2021 4:30 PM PEOPLESOFT FINANCIAL DEVELOPER Temperature 36.8 C (98.2 F) 09/21/2021 2:19 PM PEOPLESOFT FINANCIAL DEVELOPER Respiratory Rate 18 09/21/2021 2:19 PM PEOPLESOFT FINANCIAL DEVELOPER Oxygen Saturation 96% 09/21/2021 4:30 PM PEOPLESOFT FINANCIAL DEVELOPER Inhaled Oxygen Concentration - - Weight 141.5 kg (311 lb 15.2 oz) 09/21/2021 2:19 PM PEOPLESOFT FINANCIAL DEVELOPER Height 175.3 cm (5' 9) 04/26/2017 11:1 1 AM CDT Body Mass Index 46.07 04/26/2017 11:11 AM CDT Plan of Treatment Not on file Insurance Mamta8 [address] CHOICE PLUS [facility] CHOICE PLUS Care Teams Asphalt Layer Relationship Specialty Start Date End Date Wilfred Trammell MD PCP - General Family Medicine 03/31/17
== END 2025-04-18 14:24 | disposition home or self-care (01) ==
PROVIDERS: PCP Emergency Medicine; Visit Provider Emergency Medicine
DX: M47.812 Spondylosis without myelopathy or radiculopathy, cervical region (principal)
CPT/HCPCS: 70360